=== PATIENT | female | born 1995 | race Caucasian/White ===

== ENCOUNTER 2017-04-10 18:10 | Emergency (ER) | payer OTHER ==
[~2017-04-10] VITALS: Ht 165.1 cm; Wt 59.0 kg
[2017-04-10 19:33] VITALS: BP 125/85
== END 2017-04-10 20:59 | disposition home or self-care (01) ==
LOC: ED 18:10
DX: J20.9 Acute bronchitis, unspecified (principal)
CPT/HCPCS: J2930; J7613

== ENCOUNTER 2017-06-21 00:15 | Emergency (ER) | payer OTHER ==
[2017-06-21 01:46] VITALS: BP 128/67
== END 2017-06-21 01:47 | disposition home or self-care (01) ==
LOC: ED 00:15
DX: J20.9 Acute bronchitis, unspecified (principal); Z88.1 Allergy status to other antibiotic agents; J45.909 Unspecified asthma, uncomplicated

== ENCOUNTER 2017-10-10 12:02 | Emergency (ER) | payer OTHER ==
[~2017-10-10] VITALS: Ht 154.9 cm; Wt 59.0 kg
[2017-10-10 12:04] VITALS: Ht 154.9 cm; Wt 59.0 kg
[2017-10-10 14:51] VITALS: BP 144/90
== END 2017-10-10 14:51 | disposition home or self-care (01) ==
LOC: ED 12:02
DX: J45.901 Unspecified asthma with (acute) exacerbation (principal); R10.30 Lower abdominal pain, unspecified; R07.89 Other chest pain; Z88.1 Allergy status to other antibiotic agents
CPT/HCPCS: J7512; J7613; J7644

== ENCOUNTER 2018-02-26 08:36 | Inpatient (IN) | payer OTHER ==
[~2018-02-26] VITALS: Ht 157.5 cm; Wt 54.9 kg
[2018-02-26 09:55] LABS: BASOPHIL % 0.4 % (0-2); PLATELET COUNT 260 x10^3mcL (130-400); RED CELL DISTRIBUTION WIDTH 13.4 % (11.5-14.5)
[2018-02-26 10:01] LABS: microscopic required? NO
[2018-02-26 10:05] LABS: CALCIUM 9.8 mg/dL (8.5-10.1); CARBON DIOXIDE 25.4 mmol/L (21-32); CHLORIDE SERUM 107 mmol/L (98-107); CREATININE SERUM 0.9 mg/dL (0.6-1.0); GFR1 > 60 mL/min; GLUCOSE SERUM 97 mg/dL (74-106); POTASSIUM SERUM 3.3 mmol/L (3.5-5.1); SODIUM SERUM 144 mmol/L (136-145)
[2018-02-26 10:10] LABS: UA SPECIFIC GRAVITY <=1.005 (1.005-1.035); urine erythrocyte NEGATIVE (NEGATIVE)
[2018-02-26 10:10] LABS: ALBUMIN 4.8 g/dL (3.4-5.0); ALKALINE PHOSPHATASE 102 U/L (46-116); ALT/SGPT 13 U/L (14-59); AST/SGOT 15 U/L (15-37); BILIRUBIN TOTAL 0.68 mg/dL (0.20-1.00); LIPASE 264 IU/L (73-393)
[2018-02-26 10:16] LABS: TOTAL PROTEIN, SERUM 9.1 g/dL (6.4-8.2)
[2018-02-26 12:56] LABS: CHOLESTEROL/HDL RATIO 2.7; MAGNESIUM 2.2 mg/dL (1.8-2.4); PHOSPHOROUS 1.9 mg/dL (2.5-4.9)
[2018-02-26 13:24] LABS: T3 TOTAL 1.46 ng/mL
[2018-02-26 13:32] LABS: AMPHETAMINE QUAL UR NONE DETECTED (See below)
[2018-02-26 13:36] LABS: FREE T4 1.29 ng/dL (0.76-1.46); FREE THYROXINE INDEX 3.6 ug/dL (1.4-4.5)
[2018-02-26 14:16] VITALS: BP 124/81
[2018-02-26 14:21] VITALS: Ht 157.5 cm; Wt 54.9 kg
[2018-02-26 21:21] VITALS: BP 112/61
[2018-02-27 06:14] VITALS: BP 121/67
[2018-02-27 06:44] LABS: CALCIUM 7.6 mg/dL (8.5-10.1); CARBON DIOXIDE 22.1 mmol/L (21-32); CHLORIDE SERUM 111 mmol/L (98-107); CREATININE SERUM 0.7 mg/dL (0.6-1.0); GFR1 > 60 mL/min; GLUCOSE SERUM 77 mg/dL (74-106); MAGNESIUM 1.9 mg/dL (1.8-2.4); POTASSIUM SERUM 3.7 mmol/L (3.5-5.1); SODIUM SERUM 142 mmol/L (136-145)
[2018-02-27 06:53] LABS: BASOPHIL % 0.7 % (0-2); PLATELET COUNT 199 x10^3mcL (130-400); RED CELL DISTRIBUTION WIDTH 13.4 % (11.5-14.5)
[2018-02-27 10:02] VITALS: BP 97/57
[2018-02-27 14:14] VITALS: BP 124/91
[2018-02-27 17:50] VITALS: BP 133/83
[2018-02-27 21:01] VITALS: BP 106/61
[2018-02-28 05:36] VITALS: BP 125/73
[2018-02-28 07:01] LABS: BASOPHIL % 0.6 % (0-2); PLATELET COUNT 220 x10^3mcL (130-400)
[2018-02-28 07:15] LABS: CALCIUM 7.8 mg/dL (8.5-10.1); CARBON DIOXIDE 24.7 mmol/L (21-32); CHLORIDE SERUM 109 mmol/L (98-107); CREATININE SERUM 0.7 mg/dL (0.6-1.0); GFR1 > 60 mL/min; GLUCOSE SERUM 83 mg/dL (74-106); MAGNESIUM 1.9 mg/dL (1.8-2.4); POTASSIUM SERUM 3.7 mmol/L (3.5-5.1); SODIUM SERUM 142 mmol/L (136-145)
[2018-02-28 08:08] VITALS: BP 123/70
[2018-02-28] MEDS ORDERED: COL100 PO (08:25)
[2018-02-28] MEDS ORDERED: ZOF4 PO (08:47)
[2018-02-28 14:56] VITALS: BP 109/64
[2018-02-28 17:19] VITALS: BP 114/77
== END 2018-02-28 18:13 | disposition home or self-care (01) | DRG 254 ==
LOC: ED 08:36 → MU 11:50
PROVIDERS: Emergency Medicine; Family Medicine; Internal Medicine Gastroenterology
PROC: 0DB78ZX Excision of Stomach, Pylorus, Via Natural or Artificial Opening Endoscopic, Diagnostic (ICD-10-PCS; principal; 2018-02-27 11:30)
PROC: 0DJD8ZZ Inspection of Lower Intestinal Tract, Via Natural or Artificial Opening Endoscopic (ICD-10-PCS; 2018-02-28)
DX: K38.1 Appendicular concretions (principal); E83.39 Other disorders of phosphorus metabolism; K29.70 Gastritis, unspecified, without bleeding; E87.6 Hypokalemia; F12.10 Cannabis abuse, uncomplicated; Z68.22 Body mass index [BMI] 22.0-22.9, adult; Z88.8 Allergy status to other drugs, medicaments and biological substances; J45.909 Unspecified asthma, uncomplicated; Z83.3 Family history of diabetes mellitus; Z82.49 Family history of ischemic heart disease and other diseases of the circulatory system; G89.29 Other chronic pain; M54.9 Dorsalgia, unspecified; K58.9 Irritable bowel syndrome, unspecified
CPT/HCPCS: 43235; 45378; 83880; 84439; 87046; 87046-59; J1200; J1610; J1885; J2250; J2310; J2405; J3010; J3490; J7030; Q0092